=== PATIENT | female | born 1960 | race Caucasian/White ===

== ENCOUNTER → 2017-08-11 | Outpatient (CLI) | payer BC ==
[~2017-08-11] MED LIST: Bactrim 400-801 EACH PO; Bactrim Ds Tab1 EACH PO; CEFTR1PB IV; Glyburide-Metf1 EAC2 PO; LISI20 PO; Synthroid112 MCG PO
[2017-08-11 16:18] LABS: Bacteria Many /hpf; Squamous Epithelial Cells Few /hpf (Few); White Blood Cells, Urine TNTC /hpf (0-5)
[2017-08-11 16:20] LABS: Hematocrit 32.1 % (33.0-51.0); Hemoglobin 10.4 g/dL (11.5-16.0)
[2017-08-11 16:30] LABS: Protein, Urine Random 189.6 mg/dL (0.0-11.9)
[2017-08-11 16:39] LABS: Creatinine, Urine Random 47.2 mg/dL (27.00-270.00)
[2017-08-11 17:06] LABS: Albumin, Blood 3.2 g/dL (3.4-5.0); Anion Gap 7 mmol/L (6-16); Blood Urea Nitrogen 55 mg/dL (8-24); CO2, Blood 24 mmol/L (21-32); Calcium, Blood 8.9 mg/dL (8.5-10.1); Chloride, Blood 104 mmol/L (98-108); Creatinine, Blood 2.29 mg/dL (0.40-1.00); Glomerular Filtration Rate 23 (60-); Glucose, Blood 295 mg/dL (70-99); Phosphorus, Blood 4.3 mg/dL (2.5-4.9); Potassium, Blood 5.6 mmol/L (3.5-5.5); Sodium, Blood 135 mmol/L (136-145)
[2017-08-11 17:42] LABS: Percent Saturation 18.2 % (15.0-50.0)
== END ==
LOC: LAB SHORT 14:35 → OLS 14:35
PROVIDERS: Internal Medicine
DX: N18.4 Chronic kidney disease, stage 4 (severe) (principal); D63.1 Anemia in chronic kidney disease; N25.81 Secondary hyperparathyroidism of renal origin
CPT/HCPCS: 36415; 80069; 81015; 82570; 82728; 83540; 83550; 83970; 84156; 85014; 85018

== ENCOUNTER → 2018-07-28 | Outpatient (CLI) | payer BC | END | disposition home or self-care (01) | LOC: LAB 17:45 → LAB SHORT 17:45 | DX: L03.032 Cellulitis of left toe (principal); E11.621 Type 2 diabetes mellitus with foot ulcer; L97.522 Non-pressure chronic ulcer of other part of left foot with fat layer exposed | CPT/HCPCS: 87070; 87077; 87186; 87205 ==